=== PATIENT | female | born 1985 | race Caucasian/White ===

== ENCOUNTER 2020-03-26 11:38 | Emergency (ER) | payer MEDICAID ==
[~2020-03-26] VITALS: Ht 167.6 cm; Wt 88.9 kg
[2020-03-26 11:42] VITALS: Ht 167.6 cm; Wt 88.9 kg
[2020-03-26 12:37] LABS: microscopic required? NO
[2020-03-26 12:59] LABS: BASOPHIL % 0.5 % (0-2); PLATELET COUNT 132 x10^3mcL (130-400)
[2020-03-26 13:00] LABS: RED CELL DISTRIBUTION WIDTH 16.6 % (11.5-14.5)
[2020-03-26 13:01] LABS: CALCIUM 8.2 mg/dL (8.5-10.1); CARBON DIOXIDE 25.3 mmol/L (21-32); CHLORIDE SERUM 102 mmol/L (98-107); CREATININE SERUM 0.9 mg/dL (0.6-1.0); GFR1 > 60 mL/min; GLUCOSE SERUM 93 mg/dL (74-106); SODIUM SERUM 136 mmol/L (136-145)
[2020-03-26 13:28] LABS: urine erythrocyte NEGATIVE (NEGATIVE)
[2020-03-26 15:00] VITALS: BP 103/62
== END 2020-03-26 15:00 | disposition home or self-care (01) ==
LOC: ED 11:38
PROVIDERS: Emergency Medicine
DX: L03.213 Periorbital cellulitis (principal); Z88.0 Allergy status to penicillin
CPT/HCPCS: J0780; J7030; Q0163; Q9967

== ENCOUNTER 2020-03-31 12:26 | Emergency (ER) | payer MEDICAID ==
[~2020-03-31] VITALS: Ht 167.6 cm; Wt 86.2 kg
[2020-03-31 12:41] VITALS: Ht 167.6 cm; Wt 86.2 kg
[2020-03-31 14:59] VITALS: BP 132/88
== END 2020-03-31 14:59 | disposition home or self-care (01) ==
LOC: ED 12:26
DX: U07.1 COVID-19 (principal); R42 Dizziness and giddiness; R11.0 Nausea; Z88.0 Allergy status to penicillin
CPT/HCPCS: Q0092; U0003-CS

== ENCOUNTER 2020-04-04 04:27 | Emergency (ER) | payer MEDICAID ==
[~2020-04-04] VITALS: Ht 167.6 cm; Wt 83.9 kg
[2020-04-04 04:48] VITALS: Ht 167.6 cm; Wt 83.9 kg
[2020-04-04 06:40] VITALS: BP 123/83
== END 2020-04-04 06:40 | disposition home or self-care (01) ==
LOC: ED 04:27
DX: U07.1 COVID-19 (principal); F41.9 Anxiety disorder, unspecified; Z88.0 Allergy status to penicillin
CPT/HCPCS: Q0092

== ENCOUNTER 2020-04-08 01:56 | Emergency (ER) | payer MEDICAID, SELFPAY ==
[~2020-04-08] VITALS: Ht 167.6 cm; Wt 81.6 kg
[2020-04-08 02:03] VITALS: Ht 167.6 cm; Wt 81.6 kg
[2020-04-08 05:27] VITALS: BP 116/76
== END 2020-04-08 05:27 | disposition home or self-care (01) ==
LOC: ED 01:56
DX: R06.02 Shortness of breath (principal); G47.00 Insomnia, unspecified; R51 Headache; R53.83 Other fatigue; R00.2 Palpitations; R11.10 Vomiting, unspecified; Z88.0 Allergy status to penicillin
CPT/HCPCS: 36600; Q0092

== ENCOUNTER 2020-04-11 02:15 | Emergency (ER) | payer MEDICAID, SELFPAY ==
[~2020-04-11] VITALS: Ht 167.6 cm; Wt 77.6 kg
[2020-04-11 02:20] VITALS: Ht 167.6 cm; Wt 77.6 kg
[2020-04-11 05:35] VITALS: BP 132/86
== END 2020-04-11 05:35 | disposition home or self-care (01) ==
LOC: ED 02:15
DX: I49.3 Ventricular premature depolarization (principal); F41.9 Anxiety disorder, unspecified; Z88.0 Allergy status to penicillin